=== PATIENT | male | born 1960 | race Caucasian/White ===

== ENCOUNTER 2018-09-22 14:56 | Outpatient (CLI) | payer OTHER ==
--- NOTE | 2018-09-22 15:22 | RAD ---
XR Chest Pa Lat STANDARD HISTORY: Chest wall pain, cough, shortness of breath COMPARISON: 12/22/2011 FINDINGS: The heart size is normal. The lungs are well expanded without focal areas of consolidation, pneumothorax or pleural effusions. IMPRESSION: No radiographic evidence of acute cardiopulmonary process.
== END 2018-09-22 14:57 | disposition home or self-care (01) ==
LOC: BICRAD 14:56
PROVIDERS: ATTEND Family Medicine
DX: R07.89 Other chest pain (principal)
CPT/HCPCS: 71046